=== PATIENT | female | born 1975 | race African-American/Black ===

== ENCOUNTER 2017-03-16 17:29 | Emergency (ER) | payer OTHER ==
[~2017-03-16] VITALS: Ht 152.4 cm; Wt 59.1 kg
[2017-03-16 19:45] VITALS: BP 135/67
== END 2017-03-16 19:45 | disposition home or self-care (01) ==
LOC: EMS 17:32
DX: J40 Bronchitis, not specified as acute or chronic (principal); I10 Essential (primary) hypertension
CPT/HCPCS: 71020; 99284